=== PATIENT | female | born 1965 ===

== ENCOUNTER 2024-11-13 15:48 | Emergency (ER) | payer SELFPAY ==
[~2024-11-13] VITALS: Ht 170.2 cm; Wt 83.3 kg
[2024-11-13 15:50] VITALS: BP 133/72; TEMP 97.1; O2SAT 98
== END 2024-11-13 15:53 | disposition left against medical advice (07) ==
LOC: M ED 15:48
DX: Z53.21 Procedure and treatment not carried out due to patient leaving prior to being seen by health care provider (principal)